=== PATIENT | female | born 2005 | race Caucasian/White ===

== ENCOUNTER 2024-03-17 12:28 | Emergency (ER) | payer MEDICAID | END 2024-03-17 14:51 | disposition home or self-care (01) | LOC: ERS 12:28 | DX: J18.9 Pneumonia, unspecified organism (principal) | CPT/HCPCS: 71045 ==

== ENCOUNTER 2024-10-12 18:12 | Emergency (ER) | payer MEDICAID, OTHER ==
[2024-10-12] MEDS ORDERED: HYDROcodone/Acetaminophen 5/325 mg Tablet ONE (19:42)
== END 2024-10-12 19:51 | disposition home or self-care (01) ==
LOC: ERS 18:12
DX: K64.4 Residual hemorrhoidal skin tags (principal)
CPT/HCPCS: 99282